=== PATIENT | male | born 1940 | race American Indian/Alaskan Native ===

== ENCOUNTER 2018-04-25 16:33 | Emergency (ER) | payer MEDICARE ==
--- NOTE | 2018-04-25 16:58 | EDM.PDOC ---
ED HPI GENERAL MEDICAL PROBLEM - General Chief Complaint: General Stated Complaint: ILLNESS FROM [place] Time Seen by Provider: 04/25/18 16:53 Source of Information: Reports: Patient, EMS, Old Records, Other ([facility] staff and dialysis staff) History Limitations: Reports: No Limitations - History of Present Illness INITIAL COMMENTS - FREE TEXT/NARRATIVE: 77 yo male local [facility] patient and dialysis patient was sent to the ER for a BP that is running lower than usual and some mild confusion at times. No pain or fever reported. Is given a dose of midodrine before each dialysis tx to get his BP up a little. Is not on any antihypertensive agents. Finished today's dialyis run and was sent via EMS to the ER for evaluation. Is a full code. Relatively new admission to the [facility]. resides in [place]. He is a . Currently is newly assigned to Dr. Wood @ [facility]. Onset: Gradual Onset Date: 04/21/18 Duration: Day(s):, Getting Worse Location: Reports: Generalized Quality: Reports: Other (no pain reported) Severity: Moderate Improves with: Reports: Medication (midodrine helps some) Worsens with: Reports: Other (unknown) Context: Reports: Other (BP always is low, just lower than usual today.) Associated Symptoms: Reports: Confusion (mild at times. ). Denies: Chest Pain, Cough, Fever/Chills, Loss of Appetite, Nausea/Vomiting, Rash, Shortness of Breath, Syncope Treatments [employer]: Reports: Other (see below) (got his usual dose of midodrine before dialysis today, 20 mg) - Related Data Allergies Allergy/AdvReac Type Severity Reaction Status Date / Time acetaminophen Allergy Cannot Verified 04/25/18 17:17 [From Tylenol-Codeine #3] Remember amitriptyline Allergy Cannot Verified 04/25/18 17:17 Remember Anesthetics - Christin Type- Allergy Cannot Verified 04/25/18 17:17 Parabens Remember codeine Allergy Cannot Verified 04/25/18 17:17 [From Tylenol-Codeine #3] Remember morphine Allergy Rash Verified 04/25/18 17:17 NSAIDS (Non-Steroidal Allergy Cannot Verified 04/25/18 17:17 Anti-Inflamma Remember tramadol Allergy Cannot Verified 04/25/18 17:17 Remember Home Meds: Home Meds Acetaminophen 325 mg PO Q6HR 04/25/18 [History] Albuterol Sulfate [Proair Respiclick] 108 mcg IH Q4HR PRN 04/25/18 [History] Aspirin [Adult Aspirin] 81 mg PO DAILY 04/25/18 [History] Bisacodyl 10 mg PO DAILY 04/25/18 [History] Cholecalciferol (Vitamin D3) [Vitamin D3] 1,000 unit PO DAILY 04/25/18 [History] Cyanocobalamin (Vitamin B-12) [B-12] 1,000 mcg PO DAILY 04/25/18 [History] Ferrous Gluconate 324 mg PO 04/25/18 [History] Fluticasone Propionate [Flonase] 1 spray NS BID 04/25/18 [History] Folic Acid/Vit B Complex and C [Dialyvite] 324 mg PO DAILY 04/25/18 [History] Hydrocodone/Acetaminophen [Dennis 5-325 Tablet] 5 - 325 mg PO BID PRN 04/25/18 [ History] Ipratropium [place] [Atrovent Hfa] 1 puff Q4HR PRN 04/25/18 [History] Levofloxacin 500 mg PO 04/25/18 [History] Magnesium Oxide 400 mg PO DAILY 04/25/18 [History] Nitroglycerin [Nitrostat] 0.4 mg SL 04/25/18 [History] Pantoprazole Sodium [Protonix] 40 mg PO DAILY 04/25/18 [History] atorvaSTATin Calcium [Atorvastatin Calcium] 40 mg PO DAILY 04/25/18 [History] ED ROS GENERAL - Review of Systems Review Of Systems: See Below Constitutional: Reports: Malaise (chronic). Denies: Fever, Chills HEENT: Reports: No Symptoms Respiratory: Reports: No Symptoms Cardiovascular: Reports: No Symptoms Endocrine: Reports: No Symptoms GI/Abdominal: Reports: No Symptoms : Reports: Other (anuric, chronically) Musculoskeletal: Reports: No Symptoms Skin: Reports: No Symptoms Neurological: Reports: Confusion (mild at times, not now) Psychiatric: Reports: No Symptoms ED EXAM, GENERAL - Physical Exam Exam: See Below Exam Limited By: No Limitations General Appearance: Alert, WD/WN, No Apparent Distress Eye Exam: Bilateral Eye: Other (pale conjunctivas) Ears: Normal External Exam, Normal Canal, Hearing Grossly Normal Ear Exam: Bilateral Ear: Auricle Normal, Canal Normal Nose: Normal Inspection, No Blood Throat/Mouth: Normal Inspection, Normal Lips, Normal Oropharynx, Normal Voice, No Airway Compromise Head: Atraumatic, Normocephalic Neck: Normal Inspection Respiratory/Chest: No Respiratory Distress, Lungs Clear, Normal Breath Sounds, No Accessory Muscle Use Cardiovascular: Regular Rate, Rhythm, No Edema GI/Abdominal: Normal Bowel Sounds, Soft, Non-Tender, No Distention Back Exam: Normal Inspection Extremities: Normal Inspection, Normal Range of Motion, Non-Tender, No Pedal Edema Neurological: Alert, Oriented, CN II-XII Intact, Normal Cognition, No Motor/ Sensory Deficits Psychiatric: Normal Affect, Normal Mood Skin Exam: Warm, Dry, Intact, Normal Color, No Rash Course - Vital Signs Text/Narrative:: Discussed with Dr. Wright @ 1712h. Dr. Hale called @ 1800h, accepts in transfer, hospitalist @ [facility]. Last Recorded V/S: Last Vital Signs Temp 35.7 C 04/25/18 16:44 Pulse 60 04/25/18 17:44 Resp 14 04/25/18 17:44 BP 112/49 L 04/25/18 17:44 Pulse Ox 100 04/25/18 17:21 - Orders/Labs/Meds Orders: Active Orders 24 hr Category Date Time Status Sodium Chloride 0.9% [Saline Flush] Med 04/25/18 17:16 Active 10 ml FLUSH ASDIRECTED PRN Saline Lock Insert [OM.PC] Routine Oth 04/25/18 17:16 Ordered Medication Orders Sodium Chloride (Saline Flush) 10 ml FLUSH ASDIRECTED PRN PRN Reason: Keep Vein Open Labs: Laboratory Tests 04/25/18 04/25/18 Range/Units 17:02 17:02 WBC 6.5 (4.5-11.0) K/uL RBC 1.74 L (4.30-5.90) M/uL Hgb 4.8 L* (12.0-15.0) g/dL Hct 16.6 L (40.0-54.0) % MCV 95 (80-98) fL MCH 28 (27-31) pg MCHC 29 L (32-36) % Plt Count 237 (150-400) K/uL Sodium 137 L (140-148) mmol/L Potassium 3.1 L (3.6-5.2) mmol/L Chloride 96 L (100-108) mmol/L Carbon Dioxide 33 H (21-32) mmol/L Anion Gap 11.1 (5.0-14.0) mmol/L BUN 39 H (7-18) mg/dL Creatinine 2.3 H (0.8-1.3) mg/dL Est Cr Clr Drug Dosing 25.61 mL/min Estimated GFR (MDRD) 28 L (>60) Glucose 126 H (74-106) mg/dL Calcium 8.5 (8.5-10.1) mg/dL Troponin I 0.047 (0.000-0.056) ng/mL C-Reactive Protein 0.13 (0.0-0.3) mg/dL Meds: Medications Generic Name Dose Route Start Last Admin Trade Name Freq PRN Reason Stop Dose Admin Sodium Chloride 10 ml 04/25/18 17:16 Saline Flush FLUSH ASDIRECTED PRN Keep Vein Open Departure - Departure Time of Disposition: 18:20 Disposition: DC/Tfer to Acute Hospital 02 Condition: Fair Clinical Impression: Anemia Qualifiers: 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 Qualified Code(s): N18.6 - End stage renal disease; D63.1 - Anemia in chronic kidney disease; Z99.2 - Dependence on renal dialysis - Discharge Information *PRESCRIPTION DRUG MONITORING PROGRAM REVIEWED*: No *COPY OF PRESCRIPTION DRUG MONITORING REPORT IN PATIENT LORY: No Referrals: Aiden Wood MD [Primary Care Provider] - Forms: ED Department Discharge - My Orders Last 24 Hours: My Active Orders 04/25/18 17:16 Sodium Chloride 0.9% [Saline Flush] 10 ml FLUSH ASDIRECTED PRN Saline Lock Insert [OM.PC] Routine - Assessment/Plan Last 24 Hours: My Active Orders 04/25/18 17:16 Sodium Chloride 0.9% [Saline Flush] 10 ml FLUSH ASDIRECTED PRN Saline Lock Insert [OM.PC] Routine
[2018-04-25] MEDS ORDERED: Sodium Chloride 0.9% 10 ML Syringe FLUSH PRN (17:16)
== END 2018-04-25 18:47 ==
LOC: JP.ED 16:33
DX: N18.6 End stage renal disease (principal); D63.1 Anemia in chronic kidney disease; Z79.899 Other long term (current) drug therapy; Z99.2 Dependence on renal dialysis
CPT/HCPCS: 36415; 80048; 84484; 85027; 86140; 99285